=== PATIENT | male | born 1980 | race Hispanic/Latino ===

== ENCOUNTER 2019-08-09 09:10 | Inpatient (IN) | payer BC, OTHER ==
[~2019-08-09] VITALS: Ht 170.2 cm; Wt 156.5 kg
[~2019-08-09 09:10] MED LIST: BACTRIM DS TAB1 EACH PO; CLINDAMYCIN HC300 MG PO; FLUCONAZOLE100 MG PO; MINOCYCLINE HCL50 MG PO; VASOTEC10 M1 PO
[2019-08-09] MEDS ORDERED: SODIUM CHLORIDE 0.9% 1000ML 1,000 ML IV STA (09:47)
[2019-08-09] MEDS ORDERED: KETOROLAC TROMETHAMINE 30 MG/ML VIAL IV STA (09:47)
[2019-08-09] MEDS ORDERED: ONDANSETRON HCL INJ 2MG/ML 2ML 2 MG/ML VIAL IV STA (09:47)
[2019-08-09 10:43] LABS: BASOPHILS % 0.4 % (0.0-1.0); EOSINOPHILS % 0.3 % (0.0-6.0); HEMATOCRIT 42.5 % (38.2-49.6); HEMOGLOBIN 14.6 g/dL (14.0-18.0); LYMPHOCYTES # (AUTO) 0.8 (1.0-3.2); LYMPHOCYTES % 11.8 % (18.0-39.1); MEAN CORPUSCULAR HEMOGLOBIN 29.6 pg (28-32); MEAN CORPUSCULAR HGB CONC 34.4 g/dL (31-35); MONOCYTES # (AUTO) 0.7 (0.2-0.8); MONOCYTES % 10.6 % (4.4-11.3); NEUTROPHILS # (AUTO) 5.2 (2.1-6.9); NEUTROPHILS % 76.6 % (38.7-80.0); PLATELET COUNT 184 x10e3/uL (140-360); RED BLOOD COUNT 4.94 x10e6/uL (4.3-5.7); RED CELL DISTRIBUTION WIDTH 12.6 % (11.7-14.4)
[2019-08-09] MEDS ORDERED: VANCOMYCIN 1GM/NS 250 ML 250 ML IV ONE (10:45)
[2019-08-09 11:11] LABS: ALANINE AMINOTRANSFERASE 20 IU/L (0-55); ALBUMIN 3.2 g/dL (3.5-5.0); ALBUMIN/GLOBULIN RATIO 0.8 (0.8-2.0); ALKALINE PHOSPHATASE 64 IU/L (40-150); ANION GAP 11.7 mmol/L (8-16); BLOOD UREA NITROGEN 10 mg/dL (7-26); BUN/CREATININE RATIO 12 (6-25); CALCIUM 8.4 mg/dL (8.4-10.2); CARBON DIOXIDE 24 mmol/L (22-29); CHLORIDE 104 mmol/L (98-107); CREATINE KINASE 100 IU/L (30-200); CREATININE, SERUM 0.84 mg/dL (0.72-1.25); EST GLOMERULAR FILTRATION RATE > 60 ML/MIN (60-); GLUCOSE 98 mg/dL (74-118); POTASSIUM 3.7 mmol/L (3.5-5.1); SODIUM 136 mmol/L (136-145)
[2019-08-09] MEDS: MORPHINE SULFATE INJ 4 MG/ML INJ 1ML IV STA ×2 (11:13→15:45)
[2019-08-09 11:19] LABS: INR 0.99; PARTIAL THROMBOPLASTIN TIME 34.9 seconds (23.8-35.5); PROTHROMBIN TIME 13.7 seconds (11.9-14.5)
[2019-08-09] MEDS: PIPER-TAZ 3.375 GM 50 ML IV SCH ×3 (11:19→22:16)
[2019-08-09] MEDS ORDERED: ACETAMINOPHEN 325 MG TAB PO ONE (11:45)
[2019-08-09] MEDS ORDERED: ONDANSETRON HCL INJ 2MG/ML 2ML 2 MG/ML VIAL IV PRN (12:30)
[2019-08-09] MEDS ORDERED: MORPHINE SULFATE INJ 4 MG/ML INJ 1ML IV PRN (12:30)
[2019-08-09] MEDS ORDERED: MORPHINE SULFATE 2 MG/ML SYR 1ML IV PRN (12:30)
--- NOTE | 2019-08-09 12:31 | Emergency Department Note ---
History of Present Illnes History of Present Illness Chief Complaint: General Medicine Complaints History of Present Illness This is a 38 year old male PATIENT IN FROM HOME WITH COMPLAINTS OF FEVER AND SKIN INFECTION TO RIGHT LEG AND GROIN. REDNESS NOTED. PATIENT STATES IT STARTED WEDNESDAY AND RATES PAIN 04/24. Historian: Patient Arrival Mode: Car Independent Living Instructor Required: No Onset (how long ago): day(s) (3) Location: RIGHT GROIN Quality: PAIN Radiation: Reports non-radiation Severity: moderate Onset quality: gradual Timing of current episode: constant Progression: worsening Chronicity: new Context: Denies recent illness Relieving factors: none Exacerbating factors: none Associated symptoms: Reports denies other symptoms Treatments prior to arrival: none Past Medical/Family History Physician Review I have reviewed the patient's past medical and family history. Any updates have been documented here. Past Medical History Recent Fever: No Clinical Suspicion of Infectio: No New/Unexplained Change in Ment: No Past Medical History: Hypertension Other Surgery: RIGHT LEG LIPOMA REMOVAL 2018 Social History Smoking Cessation: Never Smoker Counseling Performed: No Alcohol Use: None Any Illegal Drug Use: No TB Exposure/Symptoms: No Physically hurt or threatened: No Family History Family history of heart diseas: No Other Last Tetanus: UNK Any Pre-Existing Lines (PICC,: No Is patient up to date on immun: Yes Last Flu: UTD Last Pneumovax: NA Review of Systems Review of Systems Constitutional: Reports as per HPI, Reports fever EENTM: Reports no symptoms Cardiovascular: Reports no symptoms Respiratory: Reports no symptoms Gastrointestinal: Reports no symptoms Genitourinary: Reports no symptoms Musculoskeletal: Reports no symptoms Integumentary: Reports as per HPI Neurological: Reports no symptoms Psychological: Reports no symptoms Endocrine: Reports no symptoms Hematological/Lymphatic: Reports no symptoms Physical Exam Related Data Allergies: Coded Allergies: No Known Allergies (Unverified , 07/31/15) Triage Vital Signs Vital Signs Date Time Temp Pulse Resp B/P (MAP) Pulse Ox O2 Delivery O2 Flow Rate FiO2 08/09/19 09:41 99.9 88 18 196/85 97 Vital signs reviewed: Yes Physical Exam CONSTITUTIONAL Constitutional: Present well-nourished, Present obese HENT HENT: Present normocephalic, Present atraumatic, Present oropharynx clear/moist, Present nose normal HENT L/R: Present left ext ear normal, Present right ext ear normal EYES Eyes: Reports PERRL, Reports conjunctivae normal NECK Neck: Present ROM normal PULMONARY Pulmonary: Present effort normal, Present breath sounds normal CARDIOVASCULAR Cardiovascular: Present regular rhythm, Present heart sounds normal, Present capillary refill normal, Present normal rate GASTROINTESTINAL Abdominal: Present soft, Present nontender, Present bowel sounds normal GENITOURINARY Genitourinary: Present exam deferred SKIN Skin: Present other (RIGHT INGUINAL AREA WITH CELLULITIS (INCR WARMTH/T ENDERNESS/ERYTHEMA) EXTENDING TO ANTEROMEDIAL THIGH, INVOLVES A PANNUS/LARGE AREA OF TISSUE OF PROXIMAL THIGH, DOES NOT INVOLVE SCROTUM) MUSCULOSKELETAL Musculoskeletal: Present ROM normal NEUROLOGICAL Neurological: Present alert, Present oriented x 3, Present no gross motor or sensory deficits PSYCHOLOGICAL Psychological: Present mood/affect normal, Present judgement normal Results Laboratory Result Diagram: 08/09/1956 08/09/19 0955 Laboratory Laboratory Tests Test 08/09/19 09:55 White Blood Count 6.72 x10e3/uL (4.8-10.8) Red Blood Count 4.94 x10e6/uL (4.3-5.7) Hemoglobin 14.6 g/dL (14.0-18.0) Hematocrit 42.5 % (38.2-49.6) Mean Corpuscular Volume 86.0 fL (81-99) Mean Corpuscular Hemoglobin 29.6 pg (28-32) Mean Corpuscular Hemoglobin Concent 34.4 g/dL (31-35) Red Cell Distribution Width 12.6 % (11.7-14.4) Platelet Count 184 x10e3/uL (140-360) Neutrophils (%) (Auto) 76.6 % (38.7-80.0) Lymphocytes (%) (Auto) 11.8 % (18.0-39.1) Monocytes (%) (Auto) 10.6 % (4.4-11.3) Eosinophils (%) (Auto) 0.3 % (0.0-6.0) Basophils (%) (Auto) 0.4 % (0.0-1.0) Neutrophils # (Auto) 5.2 (2.1-6.9) Lymphocytes # (Auto) 0.8 (1.0-3.2) Monocytes # (Auto) 0.7 (0.2-0.8) Eosinophils # (Auto) 0.0 (0.0-0.4) Basophils # (Auto) 0.0 (0.0-0.1) Absolute Immature Granulocyte (auto 0.02 x10e3/uL (0-0.1) Prothrombin Time 13.7 seconds (11.9-14.5) Prothromb Time International Ratio 0.99 Activated Partial Thromboplast Time 34.9 seconds (23.8-35.5) Sodium Level 136 mmol/L (136-145) Potassium Level 3.7 mmol/L (3.5-5.1) Chloride Level 104 mmol/L (98-107) Carbon Dioxide Level 24 mmol/L (22-29) Anion Gap 11.7 mmol/L (8-16) Blood Urea Nitrogen 10 mg/dL (7-26) Creatinine 0.84 mg/dL (0.72-1.25) Estimat Glomerular Filtration Rate > 60 ML/MIN (60-) BUN/Creatinine Ratio 12 (6-25) Glucose Level 98 mg/dL (74-118) Calcium Level 8.4 mg/dL (8.4-10.2) Total Bilirubin 0.5 mg/dL (0.2-1.2) Aspartate Amino Transf (AST/SGOT) 20 IU/L (5-34) Alanine Aminotransferase (ALT/SGPT) 20 IU/L (0-55) Alkaline Phosphatase 64 IU/L (40-150) Creatine Kinase 100 IU/L (30-200) Creatine Kinase MB 0.70 ng/mL (0-5.0) Troponin I 0.006 ng/mL (0-0.300) Total Protein 7.1 g/dL (6.5-8.1) Albumin 3.2 g/dL (3.5-5.0) Globulin 3.9 g/dL (2.3-3.5) Albumin/Globulin Ratio 0.8 (0.8-2.0) Lab results reviewed: Yes Imaging Imaging results reviewed: Yes Assessment & Plan Medical Decision Making MDM OBESE, CELLULITIS RIGHT THIGH/INGUINAL AREA - CHECK CBC, CHEM'S, BLOOD CX'S - EVAL FOR LEUKOCYTOSIS, CELLULITIS, ELECTROLYTE ABNL, RENAL INSUFF. WILL ALSO GET CT OF AREA TO R/O ABSCESS, AIR-FORMING ORGANISMS Reassessment Reassessment I SPOKE WITH DR ELMORE FOR ADMISSION Assessment & Plan Final Impression: (1) Cellulitis Last Vital Signs Date Time Temp Pulse Resp B/P (MAP) Pulse Ox O2 Delivery O2 Flow Rate FiO2 08/09/19 11:31 100.7 67 18 100/74 98 Home Meds Active Scripts Fluconazole (FLUCONAZOLE) 100 Mg Tablet, 200 MG PO DAILY for 14 Days, TAB Prov:RHONDA JARQUIN MD 08/08/15 Minocycline Hcl (MINOCYCLINE HCL) 50 Mg Capsule, 100 MG PO BID for 14 Days, TAB Do not take milk, multivitamin, mineral and antacid within 3 hours of this medication. Prov:RHONDA JARQUIN MD 08/08/15 Reported Medications Clindamycin Hcl (CLINDAMYCIN HCL) 300 Mg Capsule, 300 MG PO Q8H 07/31/15 Sulfamethoxazole/Trimethoprim (BACTRIM DS TABLET) 1 Each Tablet, 1 TAB PO BID, #60 TAB 07/31/15 Enalapril Maleate (VASOTEC) 10 Mg Tablet, 10 MG PO DAILY 07/31/15 Medications in the ED Morphine Sulfate 4 mg ONCE STAT IV ; Start 08/09/19 at 09:47; Stop 08/09/19 at 10:09; Status DC Ondansetron HCl 4 mg ONCE STAT IV ; Start 08/09/19 at 09:47; Stop 08/09/19 at 10:10; Status DC Ketorolac Tromethamine 30 mg ONCE STAT IV Last administered on 08/09/19at 11:18; Admin Dose 30 MG; Start 08/09/19 at 09:47; Stop 08/09/19 at 10:09; Status DC Sodium Chloride 1,000 ml @ 0 mls/hr Q0M STAT IV Last administered on 08/09/19at 11:19; Admin Dose 1,000 MLS/HR; Start 08/09/19 at 09:47; Stop 08/09/19 at 09:56; Status DC Piperacillin Sod/ Tazobactam Sod 50 ml @ 100 mls/hr 0400,1000,1600,2200 IV Last administered on 08/09/19at 11:19; Admin Dose 100 MLS/HR; Start 08/09/19 at 10:00; Stop 08/16/19 at 09:59 Vancomycin HCl 250 ml @ 167 mls/hr NOW ONCE IV Last administered on 08/09/19at 11:53; Admin Dose 167 MLS/HR; Start 08/09/19 at 10:45; Stop 08/09/19 at 12:14; Status DC Acetaminophen 975 mg ONCE ONCE PO Last administered on 08/09/19at 11:54; Admin Dose 975 MG; Start 08/09/19 at 11:45; Stop 08/09/19 at 11:46; Status DC ROOSEVELT HOPPER MD Aug 09, 2019 12:31
[2019-08-09] MEDS: SODIUM CHLORIDE 0.9% 1000ML 1,000 ML IV SCH ×2 (13:08→22:16)
[2019-08-09] MEDS ORDERED: SODIUM CHLORIDE 0.9% 50ML 50 ML ONE (13:08)
[2019-08-09] MEDS ORDERED: IOPAMIDOL 370 MG/ML 200 ML INFUS..BTL INJ ONE (13:08)
[2019-08-09] MEDS ORDERED: HYDROCODONE/APAP 5MG-325MG TAB PO PRN (13:30)
[2019-08-09] MEDS ORDERED: HYDRALAZINE HCL 20 MG/ML VIAL IV PRN (13:30)
[2019-08-09 14:45] VITALS: BP 148/87
--- NOTE | 2019-08-09 15:00 | NUR ---
Received patient from ER via wheelchair, alert and oriented x4 denies pain at this. Ambulated independently to bed, steady gait observed. Oriented to room, call light, and visiting hours. Verbalized understanding. IV in place to left antecubital, patent. Vital signs stable. Call light and personal belongings within reach.
[2019-08-09 15:29] VITALS: BP 148/87
[2019-08-09 16:00] VITALS: BP 148/87
--- NOTE | 2019-08-09 16:30 | Diagnostic Imaging Report ---
CT of the right lower extremity with contrast History: Right inguinal cellulitis. Comparison: None available. Technique: Axial images were obtained of the right lower extremity from the right lower pelvis to to the proximal right tibia/fibula after the administration of intravenous contrast material. Coronal and sagittal reformats were reviewed. Multidetector CT scanning of the abdomen and pelvis was performed from the level of the lung bases to the inferior pubic rami after intravenous and oral administration of contrast. Coronal and sagittal multiplanar reformations were obtained. RADIATION DOSE: Total DLP: 813.61 mGy*cm Dose modulation, iterative reconstruction, and/or weight based adjustment of the mA/kV was utilized to reduce the radiation dose to as low as reasonably achievable. FINDINGS: There is soft tissue stranding noted within the right inguinal region extending down the proximal to mid right thigh. There are increased number of mildly enlarged right inguinal lymph nodes identified measuring up to 1.5 cm in short axis. There is thickening of the overlying skin anteriorly. No organized fluid collection is identified to suggest abscess for radiation. There is partially visualized large fat and bowel containing ventral to the right of midline with fascial defect measuring at least 6.2 cm. There is no evidence for bowel obstruction or strangulation. Additionally, there is a large left inguinal hernia which contains with herniation of the majority of the bladder into the left groin/inguinal region. The remaining visualized pelvic contents are unremarkable. The osseous structures demonstrate no evidence for acute fracture or destructive process. IMPRESSION: Findings suggestive of cellulitis extending from the right inguinal region to the anterior mid thigh as detailed above. Increased number of enlarged right inguinal lymph nodes noted, likely reactive. No evidence for organized fluid collection to suggest abscess formation. Partially visualized large bowel containing ventral hernia without evidence for bowel obstruction or strangulation. Large left inguinal hernia with herniation of the majority of the urinary bladder into the left groin/inguinal region. Signed by: Dr. Aldair Stratton MD on 08/09/2019 4:26 PM
[2019-08-09 19:59] VITALS: BP 134/76
[2019-08-09 20:49] VITALS: BP 134/76
--- NOTE | 2019-08-09 21:23 | Consultation ---
DATE OF CONSULTATION: REASON FOR CONSULTATION: Abscess to right groin. HISTORY OF PRESENT ILLNESS: Mr. Perez who has history of obesity, history of lipoma resection from the right groin, comes in with redness and swelling of the right groin. The patient has history of obesity and hypertension. He is admitted. PAST MEDICAL HISTORY: As above. PAST SURGICAL HISTORY: As above. ALLERGIES: NKA. SOCIAL HISTORY: There is no smoking, drug abuse, or abuse. PHYSICAL EXAMINATION: GENERAL: He is currently alert, oriented, does not seem in acute distress. VITAL SIGNS: Stable, afebrile. HEENT: Not icteric. NECK: Supple. CHEST: Clear. RIGHT GROIN: There is redness and swelling. IMPRESSION AND PLAN: Right groin cellulitis, concerned about abscess. Agree with vancomycin. We will follow vancomycin trough. A CT scan was done showed there is cellulitis. No evidence of an abscess. We will follow up clinically. Because of his weight, may need IV antibiotic for prolonged time. We will follow. MD AMY Zapata/SAI /[id number]
--- NOTE | 2019-08-09 21:30 | NUR ---
PATIENT C/O BURNING TO LEFT AC IV. D/C LEFT IV. START NEW IV TO RIGHT IV 20G. PATIENT TOLERATED WELL
[2019-08-09] MEDS: VANCOMYCIN 1GM/NS 250 ML 250 ML IV SCH (23:18)
--- NOTE | 2019-08-09 23:29 | History and Physical ---
CHIEF COMPLAINT: Right upper thigh cellulitis. HISTORY OF PRESENT ILLNESS: A 38-year-old male, morbidly obese, history of hypertension, presents to the ED with a 3-day history of a right upper thigh cellulitis. The patient reports he noticed it on Wednesday, which he had some pain in the right upper thigh and then began to get worsening erythema, induration and tender to palpation. The patient reports having similar findings in the right upper thigh. He reports several years ago, he had a lipoma that was removed in the same region. He reports having some fever at home. No cough, congestion, recent travel. No diarrhea. The patient is seen and evaluated at bedside on the medical floor. He is currently doing well with no other issues at this time. REVIEW OF SYSTEMS: Pertinent positives: Right upper extremity cellulitis. The rest of 14-point review of systems are reviewed with the patient and are negative. ALLERGIES: NO KNOWN DRUG ALLERGIES. HOME MEDICATIONS: Lisinopril. PAST MEDICAL HISTORY: He has hypertension, morbidly obese. PAST SURGICAL HISTORY: He had a lipoma removed several years ago in the right upper thigh. FAMILY HISTORY: Hypertension and diabetes. SOCIAL HISTORY: No drugs. No alcohol. Does not smoke. Good social support. PHYSICAL EXAMINATION: VITAL SIGNS: Temperature is 99.8, pulse 66, respiratory rate is 18, blood pressure 134/76, and pulse ox 100% on room air. GENERAL: Not in acute distress. Alert and oriented x3. Cooperative on examination. HEENT: Head; normocephalic, atraumatic. Eyes; pupils are equal, round, and reactive to light bilaterally. Extraocular movements intact bilaterally. Throat; no evidence of erythema or exudates in the posterior pharynx. Has poor dentition. NECK: Supple. Good range of motion. PULMONARY: Clear to auscultation bilaterally. No wheezing, no rales, no rhonchi, no crackles appreciated. CARDIOVASCULAR: Positive S1 and S2. No murmurs, rubs, or gallops appreciated. ABDOMEN: Soft, nondistended, and nontender to palpation. Bowel sounds present. MUSCULOSKELETAL: Strength is 5/5 throughout. No evidence of any muscle deficits on examination. No weakness appreciated. NEUROLOGIC: Cranial nerve II through XII grossly intact. No evidence of any neurological deficits on exam. SKIN: Intact. Warm to touch. Good cap refill. PSYCHIATRIC: Normal affect and mood. EXTREMITIES: Right upper extremity thigh shows some erythema, induration, tender to palpation. No fluctuance noted. LABORATORY FINDINGS: Show white count 6.7, hemoglobin 14, hematocrit is 42, platelets of 184. Chemistry; sodium 136, potassium 3.7, chloride 104, bicarb 24, anion gap of 11, BUN is 10, creatinine 0.84, glucose 98, calcium 8.4, total bilirubin was 0.5, AST 20, ALT 20, alkaline phosphatase 64. CK is 100, troponin 0.006. Total protein 7.1, albumin 3.2. Coagulations normal. SEROLOGY: Coronavirus PCR pending. MICROBIOLOGY: Blood cultures are pending. IMAGING STUDIES: CT of the right lower extremity shows finding suggestive of cellulitis from the right inguinal region to the anterior thigh. There is increased enlargement of the right inguinal lymph nodes, reactive. There is no organized fluid collection to suggest abscess formation. There is a ventral hernia noted without any evidence of any bowel obstruction or strangulation. There is a large left inguinal hernia with herniation of the majority of the urinary bladder into the left inguinal region. IMPRESSION: 1. Right upper extremity cellulitis with induration. 2. Hypertension. 3. Morbidly obese. 4. Left inguinal hernia. PLAN: At this time, we will continue with IV antibiotics with IV vancomycin and cefepime and discontinue Zosyn to avoid ATN, AIN picture. Stop IV fluids. Consult with General Surgery and ID. Resume same antihypertensive medications. Monitor blood cultures. Pain control. Lovenox for DVT prophylaxis. Encourage ambulation. Heart healthy diet. MD LAUAR Cummings/SAI /[id number]
--- NOTE | 2019-08-09 23:35 | NUR ---
PATIENT REFUSED PICC LINE INSERTION. DR ELMORE AWARE
[2019-08-10] VITALS (8 sets, daily range): BP systolic 109–133; BP diastolic 66–77
[2019-08-10 06:01] LABS: BASOPHILS % 0.3 % (0.0-1.0); EOSINOPHILS # (AUTO) 0.1 (0.0-0.4); EOSINOPHILS % 1.7 % (0.0-6.0); HEMATOCRIT 38.7 % (38.2-49.6); HEMOGLOBIN 13.1 g/dL (14.0-18.0); LYMPHOCYTES % 14.3 % (18.0-39.1); MEAN CORPUSCULAR HGB CONC 33.9 g/dL (31-35); MEAN CORPUSCULAR VOLUME 85.6 fL (81-99); MONOCYTES # (AUTO) 0.8 (0.2-0.8); NEUTROPHILS % 71.4 % (38.7-80.0); PLATELET COUNT 177 x10e3/uL (140-360); RED BLOOD COUNT 4.52 x10e6/uL (4.3-5.7); RED CELL DISTRIBUTION WIDTH 12.9 % (11.7-14.4)
[2019-08-10 06:23] LABS: ALANINE AMINOTRANSFERASE 16 IU/L (0-55); ALBUMIN 2.8 g/dL (3.5-5.0); ALBUMIN/GLOBULIN RATIO 0.8 (0.8-2.0); ALKALINE PHOSPHATASE 60 IU/L (40-150); ANION GAP 10.5 mmol/L (8-16); BLOOD UREA NITROGEN 10 mg/dL (7-26); BUN/CREATININE RATIO 13 (6-25); CALCIUM 8.4 mg/dL (8.4-10.2); CARBON DIOXIDE 24 mmol/L (22-29); CHLORIDE 105 mmol/L (98-107); CREATININE, SERUM 0.75 mg/dL (0.72-1.25); EST GLOMERULAR FILTRATION RATE > 60 ML/MIN (60-); GLUCOSE 89 mg/dL (74-118); POTASSIUM 3.5 mmol/L (3.5-5.1); SODIUM 136 mmol/L (136-145)
--- NOTE | 2019-08-10 06:26 | NUR ---
SPOKE TO DR Karl BLEDSOE ABOUT CONSULTATION. SAID HE WOULD SEE PATIENT LATER TODAY
[2019-08-10 06:43] LABS: ANION GAP 11.5 mmol/L (8-16); BLOOD UREA NITROGEN 10 mg/dL (7-26); BUN/CREATININE RATIO 14 (6-25); CALCIUM 8.4 mg/dL (8.4-10.2); CARBON DIOXIDE 23 mmol/L (22-29); CHLORIDE 105 mmol/L (98-107); CREATININE, SERUM 0.74 mg/dL (0.72-1.25); EST GLOMERULAR FILTRATION RATE > 60 ML/MIN (60-); GLUCOSE 90 mg/dL (74-118); POTASSIUM 3.5 mmol/L (3.5-5.1); SODIUM 136 mmol/L (136-145)
[2019-08-10] MEDS: ENALAPRIL MALEATE 10 MG TAB PO SCH (09:17)
[2019-08-10] MEDS: VANCOMYCIN 1GM/NS 250 ML 250 ML IV SCH ×2 (11:29→23:59)
--- NOTE | 2019-08-10 12:43 | Progress Note ---
DATE: SUBJECTIVE: The patient is seen and evaluated. Available labs and notes reviewed. Discussed with Dr. Barraza in details. REVIEW OF SYSTEMS: No nausea, vomiting, fever, chills, chest pain, shortness of breath, headache, rash, or dysuria. The patient is complaining of right groin infection. PHYSICAL EXAMINATION: VITAL SIGNS: Temperature 99.5 with a T-max of 100.7 yesterday about 11:30 noon, pulse 65, respiration 20, and blood pressure 129/77. GENERAL: Alert and oriented, very pleasant, morbidly obese with a BMI of 54. CV: S1 and S2. CHEST: Equal expansion. Clear to auscultation. No acute distress. ABDOMEN: Soft and nontender. No distention. HEENT: Moist. No pallor. No JVD. EXTREMITIES: Right groin cellulitis noted. Skin firm a little bit with erythema. MEDICATIONS: Reviewed and from ID point of view, the patient is on vancomycin IV. LABORATORY STUDIES: White count of 6.99, hemoglobin 13.1, and platelet 177. Sodium 136, potassium 3.5, and creatinine 0.74. Serology; coronavirus PCR not detected. MICROBIOLOGY: Blood culture negative 24 [address]. IMAGING: CT of lower extremity showed suggestive of cellulitis extending from the right inguinal region to the anterior mid thigh. Also, increased number of enlarged right inguinal lymph nodes. There was no organized fluid collection to suggest abscess. Also, partially visualized large bowel containing ventral hernia without evidence for bowel obstruction or strangulation. Also, the patient has a left large inguinal hernia with a herniation of the majority of the urinary bladder into the left groin/inguinal region. ASSESSMENT AND PLAN: Right groin cellulitis. CT was negative for fluid collection/abscess, however, it is the cellulitis extensive as mentioned above on a CT scan. Continue with antibiotics. Discussed with the nurse. Vancomycin trough to be done with the tomorrow's dose. Electrolyte abnormalities per others. Please refer to chart for more information. Monitor the patient clinically and follow with the labs. Dictated by Uziel Baumann PA-C (Al) Tommy Barraza MD /MODL /[id number]
--- NOTE | 2019-08-10 16:05 | NUR ---
Per ANGELICA Wilson. Abx is approved thru Dr. Barraza's office. Gave order for PICC line. Order placed in system.
[2019-08-10] MEDS ORDERED: ENOXAPARIN SOD INJ 40 MG/0.4 ML SYR SC SCH (17:00)
--- NOTE | 2019-08-10 19:13 | NUR ---
Completed bedside shift report and rounding with on coming night nurse. Patient in stable condition, no s/s of distress noted. No pain voiced. Telemetry applied. Bed in lowest position and locked. Call light within reach.
[2019-08-11 00:02] VITALS: BP 137/69
--- NOTE | 2019-08-11 00:11 | Progress Note ---
DATE: 08/10/2019 SUBJECTIVE: The patient has right lower extremity thigh redness, has improved tremendously. No overnight events. PHYSICAL EXAMINATION: VITAL SIGNS: Temperature is 98.8, pulse 66, respiratory rate is 18, blood pressure 109/66, and pulse ox 97% on room air. GENERAL: Not in acute distress. Alert and oriented x3. Cooperative on examination. HEENT: Head; normocephalic, atraumatic. Eyes; pupils are equal, round, and reactive to light bilaterally. Extraocular movements intact bilaterally. Throat; no evidence of erythema or exudates in the posterior pharynx. Has poor dentition. NECK: Supple. Good range of motion. PULMONARY: Clear to auscultation bilaterally. No wheezing, no rales, no rhonchi, no crackles appreciated. CARDIOVASCULAR: Positive S1 and S2. No murmurs, rubs, or gallops appreciated. ABDOMEN: Soft, nondistended, and nontender to palpation. Bowel sounds present. MUSCULOSKELETAL: Strength is 5/5 throughout. No evidence of any muscle deficits on examination. EXTREMITIES: Right lower extremity cellulitis has improved, less erythematic, less indurated. LABORATORY DATA: Labs show white count 6.9, hemoglobin 13, hematocrit is 38, platelets of 177. Chemistry reviewed and stable. Coronavirus pending. MICROBIOLOGY: Blood cultures, no growth. IMAGING STUDIES: None. IMPRESSION: 1. Right upper thigh cellulitis with induration. 2. Hypertension. 3. Morbid obesity. 4. Left inguinal hernia. PLAN: At this time, the patient has a right upper thigh cellulitis and it is indurated. We will continue with IV antibiotics and ID is following. The plan is to arrange for IV antibiotics as an outpatient with a PICC line, but the patient refuses a PICC line. We will discuss this with the Infectious Disease doctor. General Surgery was consulted for the left inguinal hernia. He is less likely a candidate for any of that due to his weight. We will need to follow very closely as an outpatient. Monitor cultures. Lovenox for DVT prophylaxis. MD LAURA Cummings/MODRula /[id number]
[2019-08-11 05:16] VITALS: BP 137/89
--- NOTE | 2019-08-11 07:00 | NUR ---
Received bedside shift from off going night nurse. patient in stable condition, no s/s of distress noted. Telemetry applied. Bed in lowest position and locked. Call light within reach.
[2019-08-11 08:09] VITALS: BP 130/84
[2019-08-11 08:26] VITALS: BP 130/84
[2019-08-11] MEDS: ENALAPRIL MALEATE 10 MG TAB PO SCH (09:13)
[2019-08-11] MEDS: VANCOMYCIN 1GM/NS 250 ML 250 ML IV SCH (10:36)
[2019-08-11 11:43] VITALS: BP 159/92
[2019-08-11 11:45] VITALS: BP 138/92
--- NOTE | 2019-08-11 11:57 | NUR ---
Pt refused PICC line. Per Al, pt can discharge with oral abx.
[2019-08-11] MEDS ORDERED: DOXYCYCLINE HY100 MG PO (12:30)
--- NOTE | 2019-08-11 12:44 | Progress Note ---
DATE: SUBJECTIVE: The patient is seen and evaluated. Available labs and notes reviewed. Discussed with Dr. Barraza. Please refer to chart for more information. REVIEW OF SYSTEMS: Feels much better. No nausea, vomiting, fever, chills, chest pain, shortness of breath, headache, rash, dysuria. His right groin feels much better. PHYSICAL EXAMINATION: VITAL SIGNS: Temperature 98.4, pulse 63, respirations 18, and blood pressure 130/84. GENERAL: Alert and oriented, no acute distress. CV: S1, S2. CHEST: Equal expansion. Clear to auscultation. No acute distress. ABDOMEN: Soft, morbidly obese with a BMI of 54.0. HEENT: Moist. No pallor. No JVD. EXTREMITIES: Right groin cellulitis significant improvement with vancomycin IV. MEDICATIONS: On vancomycin IV as far as Infectious Disease point of view. LABORATORY STUDIES: No new CBC or BMP available. Toxicology; vancomycin trough is 8.7. Serology: Coronavirus PCR is not detected. MICROBIOLOGY: Blood culture negative 48 hours. IMAGING: No new radiology studies available. ASSESSMENT AND PLAN: 1. Right groin cellulitis. CT was negative for abscess or fluid collection. The patient is seen by General Surgery. No plans for any surgical procedure at this time. Doing well with vancomycin IV. Trough is low. We will increase the dosage. The plan is to give the patient IV antibiotics as an outpatient, however, refused PICC line. He states that he just mentally does not feel comfortable with it and he needs some assurance. I have talked to the patient in details. 2. Morbid obesity with BMI of 54. 3. Left inguinal hernia. 4. Hypertension. Continue to monitor the patient in the clinic: Follow up with the labs. Monitor renal function. Increase vancomycin dose. Please refer to chart for more information. Dictated by Uziel Baumann PA-C (Al) Tommy Barraza MD /MODL /[id number]
--- NOTE | 2019-08-11 14:32 | NUR ---
Patient discharged home. Patient off the unit @ 1347 via wheelchair accompanied to the lobby by PCT. Patient in stable condition, no s/s of distress noted. No pain voiced. IV access removed with tip intact. All personal items taken with the patient. Discharge teaching and instruction given to the patient. Perscptions given to the patient along with the paperwork. Patient verbalized understanding.
[2019-08-11] MEDS ORDERED: VANCOMYCIN HCL 1.5 GM in SODIUM CHLORIDE 0.9% 250ML 300 ML IV SCH (22:30)
--- NOTE | 2019-08-11 23:53 | Discharge Summary ---
FINAL DISCHARGE DIAGNOSES: 1. Right upper thigh cellulitis with induration-improved. 2. Hypertension. 3. Morbidly obese. 4. Abdominal hernias-chronic. 5. Left inguinal hernia-chronic. CONSULTANTS: General Surgery and Infectious Disease. VITAL SIGNS: Temperature is 98, pulse 70, respiratory rate is 20, blood pressure 130/92, pulse ox 96% on room air. LABORATORY FINDINGS: Show white count 6.9, hemoglobin 13, hematocrit is 38, and platelets of 177. Coagulation; PT 13, INR 0.99, PTT 34. Chemistry; sodium 136, potassium 3.5, chloride 105, bicarb 23, anion gap of 11, BUN is 10, creatinine is 0.74, glucose is 90, calcium is 8.4. His troponins were negative. CK is 100. LFTs within normal range. Albumin was 2.8. SEROLOGIES: Coronavirus not detected. MICROBIOLOGY: Blood cultures were negative. IMAGING: CT of the right lower extremity shows findings suggestive of cellulitis from the right inguinal region to the anterior mid thigh as detailed above. Increased number of enlarged right inguinal lymph nodes noted, likely reactive. No evidence of any organized fluid collection to suggest abscess formation. He does have some evidence of ventral hernia, which he is aware of. He also has a large left inguinal hernia with herniation of majority of the urinary bladder into the left groin and inguinal region, which he is aware of. HOSPITAL COURSE: This is a 38-year-old male, morbidly obese, came into the ED with worsening right lower extremity upper thigh cellulitis, needing further evaluation and management. ID and General Surgery were consulted. The patient maintained on IV antibiotic therapy with much improvement. CT of the right upper thigh with results above, shows evidence of cellulitis, but no evidence of any fluid collection or any abscess. General Surgery came and evaluated the patient. He cleared the patient for discharge to home. In relation to his hernia, General Surgery recommended weight loss first and follow up as an outpatient in his office. As per ID, Infectious Disease recommended IV PICC line and IV antibiotics as an outpatient due to his morbid obesity state, but the patient refused PICC line and refuses IV antibiotic therapy. Instead, because of his refusal, he was discharged home with oral antibiotics with doxycycline. He was advised to follow up with ID and General Surgery in the next 2 weeks' time. On the day of discharge, vital signs were stable, labs reviewed and stable. The patient seen and evaluated and examined thoroughly on the day of discharge with no other complaints. The patient verbalized understanding and agrees to plan of care to follow up accordingly as an outpatient with primary care physician in 1 week and ID and General Surgery in 2 weeks' time. MEDICATIONS: See med reconciliation form. DISPOSITION: Home. CONDITION: Stable. DIET: Heart healthy. In the event of any worsening symptoms, the patient was advised to come back to the ED for further evaluation. Discharge summary took greater than 35 minutes. MD LAURA Cummings/MODL /[id number]
== END 2019-08-11 13:47 | disposition home or self-care (01) | DRG 603 ==
LOC: ER 09:10 → ERHOLD 12:17 → MED/SURG2 14:32
PROVIDERS: ADMIT Internal Medicine; ATTEND Internal Medicine
DX: L03.115 Cellulitis of right lower limb (principal); Z68.43 Body mass index [BMI] 50.0-59.9, adult; L03.314 Cellulitis of groin; I10 Essential (primary) hypertension; Z83.3 Family history of diabetes mellitus; Z82.49 Family history of ischemic heart disease and other diseases of the circulatory system; K40.90 Unilateral inguinal hernia, without obstruction or gangrene, not specified as recurrent; E66.01 Morbid (severe) obesity due to excess calories; K43.9 Ventral hernia without obstruction or gangrene; Z11.59 Encounter for screening for other viral diseases
CPT/HCPCS: 36415; 80048; 80053; 80202; 82550; 82553; 84484; 85025; 85610; 85730; 87040; 87635; 99284; J1650; J1885; J2405; J2543; J3370; J7030; J7050; Q9967

== ENCOUNTER → 2019-09-20 | Outpatient (CLI) | payer BC, OTHER ==
[~2019-09-20] MED LIST changes: +DOXYCYCLINE HY100 MG PO
--- NOTE | 2019-09-20 07:39 | Diagnostic Imaging Report ---
EXAMINATION: CHEST 2 VIEWS INDICATION: ^COVID-19 COMPARISON: None FINDINGS: TUBES and LINES: None. LUNGS: Low lung volumes. Lungs are clear. No consolidations. PLEURA: No pleural effusion or pneumothorax. HEART AND MEDIASTINUM: The cardiomediastinal silhouette is unremarkable. BONES AND SOFT TISSUES: No acute osseous lesion. Soft tissues are unremarkable. UPPER ABDOMEN: No free air under the diaphragm. IMPRESSION: Low lung volumes. No acute thoracic process. Signed by: Angelo Neumann MD on 09/20/2019 7:35 AM
== END ==
LOC: RAD 05:37
PROVIDERS: ATTEND Internal Medicine
DX: Z03.818 Encounter for observation for suspected exposure to other biological agents ruled out (principal)
CPT/HCPCS: 71046